=== PATIENT | female | born 1940 | race American Indian/Alaskan Native ===

== ENCOUNTER 2017-01-24 15:42 | Outpatient (CLI) | payer MEDICARE, OTHER ==
--- NOTE | 2017-01-24 16:26 | XRay Report ---
Chest 2 views: Compared to 02/13/15. Findings: Borderline cardiomegaly. Trachea is midline. Evidence of mild COPD. No acute consolidation. Scarring lower lobes. No pleural effusion. Impression: No acute lung changes.
== END 2017-01-24 15:43 | disposition home or self-care (01) ==
LOC: XRAY 15:42
PROVIDERS: ATTEND Internal Medicine
DX: J44.9 Chronic obstructive pulmonary disease, unspecified (principal)
CPT/HCPCS: 71020

== ENCOUNTER 2017-12-02 13:13 | Observation (INO) | payer MEDICARE, OTHER ==
[2017-12-02 14:03] LABS: Basophils % (Auto) 0.2 % (0.0-1.8); Eosinophils # (Auto) 0.7 K/mm3 (0.0-0.4); Eosinophils % (Auto) 8.3 % (0.0-4.3); Hematocrit 34.6 % (30.3-42.9); Hemoglobin 11.7 gm/dl (10.1-14.3); Lymphocytes # (Auto) 2.7 K/mm3 (1.2-5.4); Lymphocytes % (Auto) 32.4 % (13.4-35.0); Mean Corpuscular HGB Conc 34 % (30-34); Mean Corpuscular Hemoglobin 34 pg (28-32); Mean Corpuscular Volume 102 fl (79-97); Monocytes # (Auto) 0.7 K/mm3 (0.0-0.8); Monocytes % (Auto) 8.6 % (0.0-7.3); Platelet Count 206 K/mm3 (140-440); Red Cell Distribution Width 14.3 % (13.2-15.2)
[2017-12-02 14:31] LABS: Calcium 8.6 mg/dL (8.4-10.2)
--- NOTE | 2017-12-02 14:58 | XRay Report ---
PORTABLE CHEST INDICATION: Shortness of breath. COMPARISON: 01/24/2017 FINDINGS: Portable, frontal chest radiograph again demonstrates normal cardiomediastinal silhouette, aortic knob calcifications and prominent bilateral lung markings/fibrotic changes, greatest inferiorly. No pleural effusions or CHF. Stable demineralized bones with few degenerative changes. CONCLUSION: No acute chest process with stable chronic lung changes, as described. Thank you for the opportunity to participate in this patient's care.
--- NOTE | 2017-12-02 19:54 | Emergency Department Report ---
ED General Adult HPI - General Chief complaint: Dyspnea/Respdistress Stated complaint: LOW BLOOD PRESSURE Time Seen by Provider: 12/02/17 18:34 Source: patient, EMS Mode of arrival: Stretcher Limitations: No Limitations - History of Present Illness Initial comments: Patient was sent here from dialysis this morning at about 10:30 AM when they tried to access her dialysis AV fistula but could not access it. She was also bleeding from the site which has since stopped. Patient did not end up doing dialysis today and also did not attend dialysis on Tuesday because she was having some discomfort in the lower extremities. Patient denies any chest pain or shortness of breath. MD Complaint: av fistula unaccessible -: Gradual Improves with: none Worsens with: none - Related Data Home Medications Medication Instructions Recorded Confirmed Last Taken Insulin Aspart [NovoLOG 100 0 unit SQ AC 10/08/15 02/09/16 02/12/16 UNITS/ML VIAL] ALBUTEROL NEB's [Proventil 0.083% 1 dose IH BID PRN 12/26/15 02/18/16 02/12/16 NEBS] Previous Rx's Medication Instructions Recorded Last Taken Type HYDROcodone/APAP 7.5-325 [[place] 1 each PO Q6HR PRN #40 tablet 12/26/15 02/12/16 Rx 7.5-325 mg TAB] Aspirin [Aspirin BABY CHEW TAB] 81 mg PO QDAY #30 tab.chew 02/19/16 Unknown Rx Colchicine [Colcrys] 0.6 mg PO DAILY PRN #30 tablet 02/19/16 Unknown Rx Gabapentin [Neurontin] 300 mg PO BID #30 capsule 02/19/16 Unknown Rx HYDROcodone/APAP 7.5-325 [[place] 1 each PO Q6HR PRN #60 tablet 02/19/16 Unknown Rx 7.5-325 mg TAB] Allergies Allergy/AdvReac Type Severity Reaction Status Date / Time No Known Allergies Allergy Verified 12/22/15 09:25 ED Review of Systems ROS: Stated complaint: LOW BLOOD PRESSURE Other details as noted in HPI Comment: All other systems reviewed and negative ED Past Medical Hx - Past Medical History Previous Medical History?: Yes Hx Hypertension: Yes Hx CVA: Yes (TIAs) Hx Diabetes: Yes (IDDM 3 YEARS) Hx GERD: Yes Hx Renal Disease: Yes Hx Arthritis: Yes Hx Kidney Stones: Yes Hx Psychiatric Treatment: Yes (ANXIETY) Hx COPD: Yes (OXYGEN HS ONLY) Hx Dementia: Yes Hx HIV: No - Surgical History Past Surgical History?: Yes Hx Appendectomy: Yes Additional Surgical History: RIGHT KNEE SURGERY. HYSTERECTOMY. right permacath (Dr. Ornelas) - Social History Smoking Status: Never Smoker Substance Use Type: None - Medications Home Medications: Home Medications Medication Instructions Recorded Confirmed Last Taken Type Insulin Aspart [NovoLOG 100 0 unit SQ AC 10/08/15 02/09/16 02/12/16 History UNITS/ML VIAL] ALBUTEROL NEB's [Proventil 0.083% 1 dose IH BID PRN 12/26/15 02/18/16 02/12/16 History NEBS] HYDROcodone/APAP 7.5-325 [[place] 1 each PO Q6HR PRN #40 tablet 12/26/15 02/18/16 02/12/16 Rx 7.5-325 mg TAB] Aspirin [Aspirin BABY CHEW TAB] 81 mg PO QDAY #30 tab.chew 02/19/16 Unknown Rx Colchicine [Colcrys] 0.6 mg PO DAILY PRN #30 tablet 02/19/16 Unknown Rx Gabapentin [Neurontin] 300 mg PO BID #30 capsule 02/19/16 Unknown Rx HYDROcodone/APAP 7.5-325 [[place] 1 each PO Q6HR PRN #60 tablet 02/19/16 Unknown Rx 7.5-325 mg TAB] ED Physical Exam - General Limitations: No Limitations General appearance: alert, in no apparent distress - Head Head exam: Present: atraumatic, normocephalic - Eye Eye exam: Present: normal appearance. Absent: PERRL - ENT ENT exam: Present: mucous membranes moist - Neck Neck exam: Present: normal inspection - Respiratory Respiratory exam: Present: normal lung sounds bilaterally. Absent: respiratory distress - Cardiovascular Cardiovascular Exam: Present: regular rate, normal rhythm. Absent: systolic murmur, diastolic murmur, rubs, gallop - GI/Abdominal GI/Abdominal exam: Present: soft, normal bowel sounds. Absent: tenderness - Rectal Rectal exam: Present: deferred - Extremities Exam Extremities exam: Present: normal inspection, full ROM - Back Exam Back exam: Present: normal inspection, full ROM - Neurological Exam Neurological exam: Present: alert, oriented X3 - Psychiatric Psychiatric exam: Present: normal affect, normal mood ED Course Vital Signs 03/30/18 03/30/18 13:28 19:16 Temperature 97.7 F Pulse Rate 58 L Respiratory 16 Rate Blood Pressure 96/44 92/43 O2 Sat by Pulse 96 Oximetry - Reevaluation(s) Reevaluation #1: 12/02/17 21:[address] Ismael Mendoza on the patient and he said that if the patient is admitted he will repair the fistula so that the patient can have dialysis tomorrow. ED Medical Decision Making - Lab Data Result diagrams: 12/02/17 13:52 12/02/17 13:52 - Medical Decision Making I spoke to Dr. Lang - the hospitalist and she has accepted the patient for admission Critical care attestation.: If time is entered above; I have spent that time in minutes in the direct care of this critically ill patient, excluding procedure time. ED Disposition Clinical Impression: AV fistula occlusion, ESRD (end stage renal disease) on dialysis Disposition: OP ADMIT IP TO THIS HOSP Is pt being admited?: Yes Does the pt Need Aspirin: No Condition: Stable Referrals: PRIMARY CARE, [Primary Care Provider] - 3-5 Days Time of Disposition: 21:29 Print Language: PALESTINIAN
--- NOTE | 2017-12-02 23:40 | History and Physical Report ---
History of Present Illness Date of examination: 12/02/17 Date of admission: 12/02/17 21:24 Chief complaint: 'HD access nonfuctional History of present illness: Ms Loco is a 77 y/o female with HTN/DM/ESRD, who presented to the hospital with c/o not being able to get HD for 2 days due to malfunctioning AV fistula. Pt denies any symptoms and was upset that the EMS brought her to the hospital and would have preferred to have her bring her to the hospital. Denies SOB. ED course On presentation to the ED, the ED physician spoke to the Vascular surgeon, who will see pt today for eval K within normal limits. Past History Past Medical History: anemia, diabetes, dialysis, ESRD, hypertension Past Surgical History: Other (HD catheter) Social history: , lives with family, smoking, full code Family history: diabetes, hypertension Medications and Allergies Allergies Allergy/AdvReac Type Severity Reaction Status Date / Time No Known Allergies Allergy Verified 12/22/15 09:25 Home Medications Medication Instructions Recorded Confirmed Last Taken Type Insulin Aspart [NovoLOG 100 0 unit SQ AC 10/08/15 02/09/16 02/12/16 History UNITS/ML VIAL] ALBUTEROL NEB's [Proventil 0.083% 1 dose IH BID PRN 12/26/15 02/18/16 02/12/16 History NEBS] HYDROcodone/APAP 7.5-325 [[place] 1 each PO Q6HR PRN #40 tablet 12/26/15 02/18/16 02/12/16 Rx 7.5-325 mg TAB] Aspirin [Aspirin BABY CHEW TAB] 81 mg PO QDAY #30 tab.chew 02/19/16 Unknown Rx Colchicine [Colcrys] 0.6 mg PO DAILY PRN #30 tablet 02/19/16 Unknown Rx Gabapentin [Neurontin] 300 mg PO BID #30 capsule 02/19/16 Unknown Rx HYDROcodone/APAP 7.5-325 [[place] 1 each PO Q6HR PRN #60 tablet 02/19/16 Unknown Rx 7.5-325 mg TAB] Review of Systems Constitutional: other (no weight changes, no fever), no weight loss, no weight gain, no fever, no fatigue, no weakness Eyes: bilateral: other (no visual loss or changes) Ears, nose, mouth and throat: no ear pain, no ear discharge, no bleeding gums, no dental pain, no mouth pain, no dysphagia Breasts: no change in shape, no swelling, no skin changes, no Cardiovascular: no chest pain, no orthopnea, no palpitations, no shortness of breath, no dyspnea on exertion Respiratory: no cough with sputum, no excessive sputum, no congestion, no wheezing, no pleurisy Gastrointestinal: no abdominal pain, no nausea, no vomiting, no hematochezia, no loss of appetite Genitourinary Female: no flank pain, no stress incontinence, no difficulty voiding Menstruation: postmenopausal Rectal: no incontinence, no itching, no hemorrhoids Musculoskeletal: no neck pain, no shooting arm pain, no arm numbness/tingling, no morning stiffness, no muscle weakness, no muscle cramps Integumentary: no rash, no pruritis, no bullae, no lesions, no darkening of skin Neurological: no parathesias, no tingling, no seizures, no syncope Psychiatric: no hypersomnia, no change in appetite, no hallucinations, no paranoia, no depression Endocrine: no cold intolerance, no heat intolerance, no excessive sweating, no weight change Hematologic/Lymphatic: no easy bruising, no easy bleeding, no lymphadenopathy, no lymphedema Allergic/Immunologic: seasonal allergies, no urticaria, no anaphylaxis, no angioedema Exam - Constitutional Vitals: Temp Pulse Resp BP Pulse Ox 98.2 F 58 L 16 115/57 96 12/02/17 21:57 12/02/17 13:28 12/02/17 13:28 12/02/17 21:45 12/02/17 13:28 General appearance: Present: no acute distress, well-nourished - EENT Eyes: Present: PERRL, EOM intact ENT: hearing intact, clear oral mucosa - Neck Neck: Present: supple, normal ROM - Respiratory Respiratory effort: normal Respiratory: bilateral: CTA, rales (minimal rales), negative: rhonchi - Cardiovascular Rhythm: regular Heart Sounds: Present: S1 & S2 - Extremities Extremities: no ischemia, No edema, normal temperature, normal color Peripheral Pulses: within normal limits - Abdominal General gastrointestinal: Present: soft, non-tender, normal bowel sounds - Rectal Rectal Exam: deferred - Integumentary Integumentary: Present: clear, warm, dry - Musculoskeletal Musculoskeletal: strength equal bilaterally - Psychiatric Psychiatric: appropriate mood/affect, intact judgment & insight, memory intact, cooperative - Neurologic Neurologic: CNII-XII intact, moves all extremities - Allied Health Allied health notes reviewed: nursing Results - Labs CBC & Chem 7: 12/03/17 04:38 12/03/17 04:38 Labs: Laboratory Last Values WBC 8.2 K/mm3 (4.5-11.0) 12/02/17 13:52 RBC 3.40 M/mm3 (3.65-5.03) L 12/02/17 13:52 Hgb 11.7 gm/dl (10.1-14.3) 12/02/17 13:52 Hct 34.6 % (30.3-42.9) 12/02/17 13:52 MCV 102 fl (79-97) H 12/02/17 13:52 MCH 34 pg (28-32) H 12/02/17 13:52 MCHC 34 % (30-34) 12/02/17 13:52 RDW 14.3 % (13.2-15.2) 12/02/17 13:52 Plt Count 206 K/mm3 (140-440) 12/02/17 13:52 Lymph % (Auto) 32.4 % (13.4-35.0) 12/02/17 13:52 [place] % (Auto) 8.6 % (0.0-7.3) H 12/02/17 13:52 Eos % (Auto) 8.3 % (0.0-4.3) H 12/02/17 13:52 Baso % (Auto) 0.2 % (0.0-1.8) 12/02/17 13:52 Lymph # 2.7 K/mm3 (1.2-5.4) 12/02/17 13:52 [place] # 0.7 K/mm3 (0.0-0.8) 12/02/17 13:52 Eos # 0.7 K/mm3 (0.0-0.4) H 12/02/17 13:52 Baso # 0.0 K/mm3 (0.0-0.1) 12/02/17 13:52 Seg Neutrophils % 50.5 % (40.0-70.0) 12/02/17 13:52 Seg Neutrophils # 4.2 K/mm3 (1.8-7.7) 12/02/17 13:52 Sodium 136 mmol/L (137-145) L 12/02/17 13:52 Potassium 4.8 mmol/L (3.6-5.0) 12/02/17 13:52 Chloride 91.9 mmol/L (98-107) L 12/02/17 13:52 Carbon Dioxide 24 mmol/L (22-30) 12/02/17 13:52 Anion Gap 25 mmol/L 12/02/17 13:52 BUN 49 mg/dL (7-17) H 12/02/17 13:52 Creatinine 14.5 mg/dL (0.7-1.2) H 12/02/17 13:52 Estimated GFR 3 ml/min 12/02/17 13:52 BUN/Creatinine Ratio 3 % 12/02/17 13:52 Glucose 113 mg/dL (65-100) H 12/02/17 13:52 Calcium 8.6 mg/dL (8.4-10.2) 12/02/17 13:52 - Imaging and Cardiology EKG: report reviewed Chest x-ray: report reviewed Assessment and Plan Assessment and plan: Assessment Malfunctioning AVF ESRD on HD HTN DM II Tobacco abuse Full code status Plan Vascular Surgery consult for eval of current AVF Renal consult for HD Fall and aspiration precautions at all times am labs continue home meds counseled tobacco cessation further pt mght per hospital course f/u vasc surgery inputs multiple questions were answered to the best of my ability DVT and GI ulcer prophylaxis. More than 30 mins spent of which more than 50% of the time was spent in pt counseling and coordination of care
[2017-12-03] MEDS ORDERED: NORCO 7.5/325 PO PRN (01:26)
[2017-12-03] MEDS ORDERED: COLCRYS PO PRN (01:26)
[2017-12-03] MEDS ORDERED: PROVENTIL IH PRN (01:26)
[2017-12-03 05:29] LABS: Basophils # (Auto) 0.1 K/mm3 (0.0-0.1); Basophils % (Auto) 0.9 % (0.0-1.8); Eosinophils # (Auto) 0.7 K/mm3 (0.0-0.4); Eosinophils % (Auto) 9.6 % (0.0-4.3); Hemoglobin 10.7 gm/dl (10.1-14.3); Lymphocytes % (Auto) 40.5 % (13.4-35.0); Mean Corpuscular HGB Conc 33 % (30-34); Mean Corpuscular Hemoglobin 34 pg (28-32); Mean Corpuscular Volume 103 fl (79-97); Monocytes # (Auto) 0.7 K/mm3 (0.0-0.8); Monocytes % (Auto) 10.2 % (0.0-7.3); Platelet Count 206 K/mm3 (140-440); Red Blood Count 3.11 M/mm3 (3.65-5.03); Red Cell Distribution Width 14.5 % (13.2-15.2)
[2017-12-03 05:55] LABS: Calcium 8.4 mg/dL (8.4-10.2)
[2017-12-03] MEDS ORDERED: NEURONTIN PO SCH (10:00)
--- NOTE | 2017-12-03 10:11 | Consultation ---
History of Present Illness - Reason for Consult Consult date: 12/03/17 end stage renal disease - History of Present Illness Ms. Loco is a 77 y/o AAF with history significant for HTN, Type DM, Obesity and ESRD on hemodialysis (MWF) who presented to the hospital with malfunctioning AV fistula. The staff at the hemodialysis unit were not able to cannulate the AVF and she was sent to the ER for further evaluation. She denies any N, V, D, CP, sob, leg swelling, weakness, dizziness or diaphoresis. She is followed by and she gets HD at [facility]. Past History Past Medical History: anemia, diabetes, dialysis, ESRD, hypertension Past Surgical History: Other (HD catheter) Social history: , lives with family, smoking, full code Family history: diabetes, hypertension Medications and Allergies Allergies Allergy/AdvReac Type Severity Reaction Status Date / Time No Known Allergies Allergy Verified 12/22/15 09:25 Home Medications Medication Instructions Recorded Confirmed Last Taken Type Insulin Aspart [NovoLOG 100 0 unit SQ AC 10/08/15 02/09/16 02/12/16 History UNITS/ML VIAL] ALBUTEROL NEB's [Proventil 0.083% 1 dose IH BID PRN 12/26/15 02/18/16 02/12/16 History NEBS] HYDROcodone/APAP 7.5-325 [[place] 1 each PO Q6HR PRN #40 tablet 12/26/15 02/18/16 02/12/16 Rx 7.5-325 mg TAB] Aspirin [Aspirin BABY CHEW TAB] 81 mg PO QDAY #30 tab.chew 02/19/16 Unknown Rx Colchicine [Colcrys] 0.6 mg PO DAILY PRN #30 tablet 02/19/16 Unknown Rx Gabapentin [Neurontin] 300 mg PO BID #30 capsule 02/19/16 Unknown Rx HYDROcodone/APAP 7.5-325 [[place] 1 each PO Q6HR PRN #60 tablet 02/19/16 Unknown Rx 7.5-325 mg TAB] Active Meds: Active Medications Acetaminophen/Hydrocodone Bitart ([place] 7.5/325) 1 each PO Q6HR PRN PRN Reason: Pain Albuterol (Proventil) 2.5 mg IH BID PRN PRN Reason: COPD Aspirin (Baby Aspirin) 81 mg PO QDAY ALEXANDER Colchicine (Colcrys) 0.6 mg PO DAILY PRN PRN Reason: GOUT Gabapentin (Neurontin) 300 mg PO BID [facility] Review of Systems Constitutional: no weight loss, no weight gain, no fever, no chills, no anorexia , no weakness, no poor appetite Ears, nose, mouth and throat: no epistaxis Breasts: deferred Cardiovascular: high blood pressure, no chest pain, no orthopnea, no edema, no syncope, no lightheadedness, no shortness of breath, no leg edema Respiratory: no cough, no hemoptysis, no shortness of breath Gastrointestinal: no abdominal pain, no nausea, no vomiting, no diarrhea, no hematemesis, no melena Genitourinary Female: no dysuria, no hematuria Rectal: no bleeding Integumentary: no rash Neurological: no paralysis, no weakness, no change in speech, no change in mentation, no confusion Exam - Vital Signs Vital signs: Vital Signs Temp Pulse Resp BP Pulse Ox 97.7 F 58 L 16 96/44 96 12/02/17 13:28 12/02/17 13:28 12/02/17 13:28 12/02/17 13:28 12/02/17 13:28 - General Appearance General appearance: well-developed, well-nourished, appears stated age, other ( no distress) EENT: ATNC, PERRL, hearing intact, vision intact Neck: Present: neck supple, trachea midline Respiratory: Clear to Ascultation Heart: regular, S1S2, no murmurs Gastrointestinal: Present: normoactive bowel sounds, obese. Absent: tenderness , distended Integumentary: no rash, warm and dry, chronic venous stasis Neurologic: no focal deficit, no asterixis, alert and oriented x3 Musculoskeletal: Present: other (no edema, lefta rm AVF with bruit noted) Psychiatric: cooperative Results - Lab Results 12/03/17 04:38 12/03/17 04:38 Most recent lab results Calcium 8.4 mg/dL (8.4-10.2) 12/03/17 04:38 Assessment and Plan 1. Malfunctioning left arm AVF: Vascular consulted and scheduled to get angioplasty today. 2. ESRD: HD today after angioplasty. 3. Hypertension: BP well controlled. 4. Anemia: Monitor. Will follow.
[2017-12-03] MEDS ORDERED: NACL 0.9% 100 ML IV PRN (10:16)
--- NOTE | 2017-12-03 10:30 | Consultation ---
History of Present Illness - Reason for Consult Consult date: 12/03/17 Complications of Dialysis Access Requesting physician: EDDIE ROSSI - History of Present Illness The patient is a 77-year-old female with a history of end-stage renal disease who was sent from her dialysis center with a complaint of inability to access her left arm AV fistula. The the patient reported to have missed dialysis on Tuesday and then presented on Tuesday for dialysis but was unable to be accessed. Apparently she had hypotension with a systolic blood pressure in 80s and when her fistula was accessed they were "pulling clots". They attempted to send the patient to our outpatient center for intervention however given the report of hypotension we felt that it was better to send the patient to the emergency department for evaluation. We are now being consulted for evaluation of the fistula and further recommendations. Past History Past Medical History: anemia, diabetes, dialysis, ESRD, hypertension Past Surgical History: Other (HD catheter, left arm brachiobasilic arteriovenous fistula) Social history: , lives with family, smoking, full code Family history: diabetes, hypertension Medications and Allergies Allergies Allergy/AdvReac Type Severity Reaction Status Date / Time No Known Allergies Allergy Verified 12/22/15 09:25 Home Medications Medication Instructions Recorded Confirmed Last Taken Type Insulin Aspart [NovoLOG 100 0 unit SQ AC 10/08/15 02/09/16 02/12/16 History UNITS/ML VIAL] ALBUTEROL NEB's [Proventil 0.083% 1 dose IH BID PRN 12/26/15 02/18/16 02/12/16 History NEBS] HYDROcodone/APAP 7.5-325 [[place] 1 each PO Q6HR PRN #40 tablet 12/26/15 02/18/16 02/12/16 Rx 7.5-325 mg TAB] Aspirin [Aspirin BABY CHEW TAB] 81 mg PO QDAY #30 tab.chew 02/19/16 Unknown Rx Colchicine [Colcrys] 0.6 mg PO DAILY PRN #30 tablet 02/19/16 Unknown Rx Gabapentin [Neurontin] 300 mg PO BID #30 capsule 02/19/16 Unknown Rx HYDROcodone/APAP 7.5-325 [[place] 1 each PO Q6HR PRN #60 tablet 02/19/16 Unknown Rx 7.5-325 mg TAB] Active Meds: Active Medications Acetaminophen/Hydrocodone Bitart ([place] 7.5/325) 1 each PO Q6HR PRN PRN Reason: Pain Albuterol (Proventil) 2.5 mg IH BID PRN PRN Reason: COPD Aspirin (Baby Aspirin) 81 mg PO QDAY [place] Colchicine (Colcrys) 0.6 mg PO DAILY PRN PRN Reason: GOUT Gabapentin (Neurontin) 300 mg PO DAILY [place]LEX[place]ER Sodium Chloride (Nacl 0.9%) 100 mls @ 999 mls/hr IV KUMAR PRN PRN Reason: Hypotension Review of Systems All systems: negative Exam - Constitutional Vitals: Temp Pulse Resp BP Pulse Ox 98.0 F 62 20 110/58 93 12/03/17 07:32 12/03/17 07:32 12/03/17 07:32 12/03/17 07:32 12/03/17 07:32 General appearance: Present: no acute distress - Cardiovascular Rhythm: regular - Extremities Extremities: no ischemia, abnormal (left arm AV fistula with palpable thrill) - Abdominal General gastrointestinal: Present: soft, non-tender Results - Labs CBC & Chem 7: 12/03/17 04:38 12/03/17 04:38 Labs: Abnormal lab results 12/02/17 12/02/17 12/02/17 Range/Units 13:52 13:52 22:51 RBC 3.40 L (3.65-5.03) M/mm3 MCV 102 H (79-97) fl MCH 34 H (28-32) pg Lymph % (Auto) (13.4-35.0) % [place] % (Auto) 8.6 H (0.0-7.3) % Eos % (Auto) 8.3 H (0.0-4.3) % Eos # 0.7 H (0.0-0.4) K/mm3 Seg Neutrophils % (40.0-70.0) % Sodium 136 L (137-145) mmol/L Chloride 91.9 L (98-107) mmol/L BUN 49 H (7-17) mg/dL Creatinine 14.5 H (0.7-1.2) mg/dL Glucose 113 H (65-100) mg/dL POC Glucose 163 H (70-105) 12/03/17 12/03/17 Range/Units 04:38 04:38 RBC 3.11 L (3.65-5.03) M/mm3 MCV 103 H (79-97) fl MCH 34 H (28-32) pg Lymph % (Auto) 40.5 H (13.4-35.0) % [place] % (Auto) 10.2 H (0.0-7.3) % Eos % (Auto) 9.6 H (0.0-4.3) % Eos # 0.7 H (0.0-0.4) K/mm3 Seg Neutrophils % 38.8 L (40.0-70.0) % Sodium (137-145) mmol/L Chloride 90.3 L (98-107) mmol/L BUN 64 H (7-17) mg/dL Creatinine 15.1 H (0.7-1.2) mg/dL Glucose 124 H (65-100) mg/dL POC Glucose (70-105) Assessment and Plan The patient is a 77-year-old female with a history of end-stage renal disease and reports of inability to access her left arm fistula. On physical exam the patient has a left arm AV fistula with a palpable thrill. At this time I recommend going to dialysis and access and it fistula without intervention prior to attempts at access. If there is difficulty with accessing the fistula at dialysis would recommend intervention as an inpatient during this admission.
[2017-12-03] MEDS: BABY ASPIRIN PO SCH (11:02)
[2017-12-03] MEDS ORDERED: HEPARIN/NS 5000 UNIT/500ML(CATH LAB) 1,000 ML IR ONE (14:42)
[2017-12-03] MEDS ORDERED: ANCEF/STERILE WATER 2 GM/20 ML 2 GM/20 ML SYRINGE IV ONE (14:49)
[2017-12-03] MEDS: VERSED ONE ×3 (14:54→15:38)
[2017-12-03] MEDS: SUBLIMAZE ONE ×3 (14:54→15:38)
[2017-12-03] MEDS: XYLOCAINE 2% INFILTRATI ONE ×3 (14:56→15:49)
[2017-12-03] MEDS: HEPARIN 10,000 UNITS/10 ML ONE ×3 (14:57→15:40)
[2017-12-03] MEDS ORDERED: NITROGLYCERIN SYRINGE 3 ML ONE (15:35)
[2017-12-03] MEDS ORDERED: CALAN ONE (15:35)
[2017-12-03] MEDS ORDERED: HEPARIN/NS 5000 UNIT/500ML(CATH LAB) 500 ML IR ONE (15:39)
--- NOTE | 2017-12-03 17:17 | Operative Report ---
Operative Report Operative Report: Date of Procedure: 12/03/2017 Pre-operative Diagnosis: Complications for Dialysis Access Post-operative Diagnosis: Same Procedure(s): 1. Access Left AV Fistula with 6 Albanian Venous 2. Access Left AV Fistula Was 6 Albanian Sheath Arterial 3. Fistulogram Central Venogram 4. Angioplasty Left AV Fistula with 8 x 40 Balloon 5. Percutaneous Mechanical Thrombectomy of Left AV Fistula with Trertolla Device 6. Ultrasound-Guided Access Left Radial Artery With 5 Albanian Sheath 7. Angioplasty of Arterial Outflow of Left AV Fistula with 5 x 60 Balloon 8. Radiologic Supervision with Interpretation Surgeon: Ismael Mendoza M.D. Supervisor Special Education: None Anesthesia: Local and IV sedation EBL: Minimal Counts: Correct Complications: None Condition: Stable Findings: 80% stenosis of the mid body of the fistula with thrombus within the mid body of the fistula. Approximately 75% stenosis of the arterial inflow the fistula. No residual stenosis with thrombus within the mid body of the fistula. Less than 20% residual stenosis of the arterial inflow vessel. 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 Specimen: None Indication: The patient is a 77-year-old female with a history of end-stage renal disease who was admitted from dialysis with complaints of inability to perform dialysis secondary to pulling clots. She was sent to the dialysis unit in the hospital however they had same complaint she was set up for a fistulogram with possible intervention. She was given the risks, benefits, and alternative procedures and consented to the procedure. Description of Procedure: The patient was brought to the laundry laborer and laid in supine position. Her arm was then prepped and draped in normal sterile fashion. Because she did not have a peripheral IV after anesthetizing the skin small stab incision was made in the micropuncture technique was used to access the fistula towards the venous outflow and a 6 Albanian sheath was placed by Seldinger technique. IV sedation was then administered and then a fistulagram was performed with the previously described findings. Angioplasty was performed in the mid body of fistula using 8 x 40 balloon. After performing the angioplasty there was no residual stenosis however it did reveal that there was significant thrombus in the area of the previous stenosis. I used the Trertolla device to morcellate the thrombus and aspirate the thrombus. I then performed a follow-up fistulogram demonstrated no residual thrombus or stenosis. I performed a retrograde fistulogram demonstrated the area of stenosis within the arterial inflow. I anesthetized the skin and made a small stab incision in these micropuncture technique to access the fistula towards arterial inflow. I placed a 6 Albanian sheath by Seldinger technique and then advanced a J-wire towards the arterial inflow. I made multiple attempts to identify the arterial anastomosis and advance a 0.035 Glidewire and vertebral catheter into the rectal anastomosis without success. There were multiple venous collaterals connected to the distal vein making this very difficult to identify the anastomosis. I decided to access the radial artery to cannulate the anastomosis and balloon the entire inflow of the fistula. I used ultrasound to identify the radial artery and confirm patency. I anesthetized the skin overlying soft tissue and then made a small stab incision with 11 blade. These micropuncture technique and then advanced a 5 Albanian sheath by Seldinger technique. I used a 0.035 Glidewire and vertebral catheter to cannulate the anastomosis and then advanced a 5 x 60 balloon and performed angioplasty of the anastomosis of the fistula as well as the areas of stenosis. The final fistulogram demonstrated less than 20% residual stenosis of the inflow as well as brisk flow throughout the fistula. All wires and catheters were removed and a 6 Albanian sheaths were removed and 4-0 chromic were used in pursestring fashion to close the entry sites. The 5 Albanian sheath was removed from the radial artery and a pressure dressing was used to achieve hemostasis. The patient tolerated the procedure well. All sponge, needle, and estimate counts were correct. The patient was taken to the recovery area in stable condition.
--- NOTE | 2017-12-03 19:32 | Progress Note ---
Assessment and Plan Assessment and plan: 77-year-old -Luxembourger female with past medical history significant for ESRD on dialysis was presented for malfunctioning fistula. Patient denied shortness of breath, chest pain, nausea, vomiting. Potassium within normal limits. Vascular surgery was consulted and did fixation of the clogged fistula, patient tolerated the procedure well and getting dialysis through the fistula. History Interval history: Patient was seen and evaluated when she was on hemodialysis, patient denies chest pain, shortness of breath, complains mild pain on the right lower foot. Patient was alert and oriented. Hospitalist Physical - Physical exam Narrative exam: Not in cardiopulmonary distress. The patient is obese. Vital signs as documented. Head exam is unremarkable. No scleral icterus . Neck is without jugular venous distension, thyromegaly, or carotid bruits. Lungs are clear to auscultation. Cardiac exam reveals regular rate and Rhythm. First and second heart sounds normal. No murmurs, rubs or gallops. Abdominal exam reveals normal bowel sounds, no masses, no organomegaly and no aortic enlargement. Extremities are nonedematous and both femoral and pedal pulses are normal. MOTEL FRONT DESK ATTENDANT: Alert and oriented 3. No focal weakness. - Constitutional Vitals: Temp Pulse Resp BP Pulse Ox 98.0 F 79 13 110/58 100 12/03/17 07:32 12/03/17 11:05 12/03/17 11:05 12/03/17 07:32 12/03/17 11:05 General appearance: Present: no acute distress Results - Labs CBC & Chem 7: 12/03/17 04:38 12/03/17 04:38 Labs: Laboratory Last Values WBC 7.4 K/mm3 (4.5-11.0) 12/03/17 04:38 RBC 3.11 M/mm3 (3.65-5.03) L 12/03/17 04:38 Hgb 10.7 gm/dl (10.1-14.3) 12/03/17 04:38 Hct 32.0 % (30.3-42.9) 12/03/17 04:38 MCV 103 fl (79-97) H 12/03/17 04:38 MCH 34 pg (28-32) H 12/03/17 04:38 MCHC 33 % (30-34) 12/03/17 04:38 RDW 14.5 % (13.2-15.2) 12/03/17 04:38 Plt Count 206 K/mm3 (140-440) 12/03/17 04:38 Lymph % (Auto) 40.5 % (13.4-35.0) H 12/03/17 04:38 Edmunds % (Auto) 10.2 % (0.0-7.3) H 12/03/17 04:38 Eos % (Auto) 9.6 % (0.0-4.3) H 12/03/17 04:38 Baso % (Auto) 0.9 % (0.0-1.8) 12/03/17 04:38 Lymph # 3.0 K/mm3 (1.2-5.4) 12/03/17 04:38 Edmunds # 0.7 K/mm3 (0.0-0.8) 12/03/17 04:38 Eos # 0.7 K/mm3 (0.0-0.4) H 12/03/17 04:38 Baso # 0.1 K/mm3 (0.0-0.1) 12/03/17 04:38 Seg Neutrophils % 38.8 % (40.0-70.0) L 12/03/17 04:38 Seg Neutrophils # 2.9 K/mm3 (1.8-7.7) 12/03/17 04:38 Sodium 138 mmol/L (137-145) 12/03/17 04:38 Potassium 4.3 mmol/L (3.6-5.0) 12/03/17 04:38 Chloride 90.3 mmol/L (98-107) L 12/03/17 04:38 Carbon Dioxide 28 mmol/L (22-30) 12/03/17 04:38 Anion Gap 24 mmol/L 12/03/17 04:38 BUN 64 mg/dL (7-17) H 12/03/17 04:38 Creatinine 15.1 mg/dL (0.7-1.2) H 12/03/17 04:38 Estimated GFR 3 ml/min 12/03/17 04:38 BUN/Creatinine Ratio 4 % 12/03/17 04:38 Glucose 124 mg/dL (65-100) H 12/03/17 04:38 POC Glucose 163 (70-105) H 12/02/17 22:51 Calcium 8.4 mg/dL (8.4-10.2) 12/03/17 04:38
--- NOTE | 2017-12-04 08:43 | Progress Note ---
Assessment and Plan 1. Malfunctioning left arm AVF: S/p angioplasty yesterday. 2. ESRD: Patient received about an hour of hemodialysis yesterday, she refused to complete the treatment. 3. Hypertension: BP well controlled. 4. Anemia: Monitor. Will follow. Subjective Date of service: 12/04/17 Interval history: Patient is doing better. Objective - Vital Signs Vital signs: Vital Signs - 12hr 12/03/17 12/04/17 21:22 02:00 Temperature 98.4 F 98.4 F Pulse Rate 86 63 Respiratory 20 20 Rate Blood Pressure 112/46 110/55 [Right] O2 Sat by Pulse 99 92 Oximetry - General Appearance General appearance: well-developed, well-nourished, appears stated age, other ( no distress) EENT: ATNC, PERRL, hearing intact, vision intact Neck: supple Respiratory: Present: Clear to Ascultation Cardiology: regular, S1S2, no murmurs Gastrointestinal: normoactive bowel sounds, no tenderness Integumentary: no rash, warm and dry Neurologic: no asterixis, alert and oriented x3, other (able to move extremities ) Musculoskeletal: other (no edema, left arm AVF) - Lab 12/03/17 04:38 12/03/17 04:38 Most recent lab results Calcium 8.4 mg/dL (8.4-10.2) 12/03/17 04:38
[2017-12-04 08:49] VITALS: BP 96/59
[2017-12-04] MEDS: BABY ASPIRIN PO SCH (09:52)
[2017-12-04] MEDS ORDERED: NEURONTIN PO SCH (10:00)
--- NOTE | 2017-12-04 11:49 | Discharge Summary ---
Providers - Providers Date of Admission: 12/02/17 21:24 Date of discharge: 12/04/17 Attending physician: PHOENIX WARREN MD 12/02/17 23:40 Consult to Physician [CONS] Routine Comment: Consulting Provider: EMANUEL HWANG Physician Instructions: Reason For Exam: malfunctioning aAVF 12/02/17 23:43 Consult to Physician [CONS] Routine Comment: Consulting Provider: TATIANNA MCKEE Physician Instructions: Reason For Exam: ESRD FOR HD Primary care physician: TRUMAN PONCE MD Hospitalization Reason for admission: Occlusion of the AV fistula Condition: Stable Disposition: DC-01 TO HOME OR SELFCARE Time spent for discharge: 31 minutes - Discharge Diagnoses (1) AV fistula occlusion Status: Acute (2) ESRD (end stage renal disease) on dialysis Status: Chronic Core Measure Documentation - Palliative Care Palliative Care/ Comfort Measures: Not Applicable - Core Measures Any of the following diagnoses?: none Exam - Physical Exam Narrative exam: Not in cardiopulmonary distress. The patient is obese. Vital signs as documented. Head exam is unremarkable. No scleral icterus . Neck is without jugular venous distension, thyromegaly, or carotid bruits. Lungs are clear to auscultation. Cardiac exam reveals regular rate and Rhythm. First and second heart sounds normal. No murmurs, rubs or gallops. Abdominal exam reveals normal bowel sounds, no masses, no organomegaly and no aortic enlargement. Extremities are nonedematous and both femoral and pedal pulses are normal. IMPORT SPECIALIST: Alert and oriented 3. No focal weakness. - Constitutional Vitals: Temp Pulse Resp BP Pulse Ox 98 F 61 16 96/59 92 12/04/17 08:48 12/04/17 08:48 12/04/17 08:48 12/04/17 08:48 12/04/17 02:00 Plan Activity: no restrictions Weight Bearing Status: Full Weight Bearing Diet: low cholesterol Follow up with: TRUMAN PONCE MD [Primary Care Provider] - 10 Days
== END 2017-12-04 12:45 | disposition home or self-care (01) ==
LOC: ED 13:13 → 2B-ACE 21:24
PROVIDERS: ADMIT Family Medicine; ATTEND Internal Medicine
DX: T82.898A Other specified complication of vascular prosthetic devices, implants and grafts, initial encounter (principal); I13.11 Hypertensive heart and chronic kidney disease without heart failure, with stage 5 chronic kidney disease, or end stage renal disease; E11.22 Type 2 diabetes mellitus with diabetic chronic kidney disease; N18.6 End stage renal disease; Z99.2 Dependence on renal dialysis; K21.9 Gastro-esophageal reflux disease without esophagitis; M19.90 Unspecified osteoarthritis, unspecified site; F41.9 Anxiety disorder, unspecified; J44.9 Chronic obstructive pulmonary disease, unspecified; D63.1 Anemia in chronic kidney disease; E66.9 Obesity, unspecified; Z68.30 Body mass index [BMI] 30.0-30.9, adult; F17.200 Nicotine dependence, unspecified, uncomplicated; Z86.73 Personal history of transient ischemic attack (TIA), and cerebral infarction without residual deficits
CPT/HCPCS: 36415; 36905; 71045; 80048; 82962; 85025; 93005; 93010; 99285; C1725; C1751; C1757; C1769; C1894; G0378; J0690; J1644; J2250; J3010; Q9967

== ENCOUNTER 2017-12-14 07:36 | Day surgery (SDC) | payer MEDICARE, OTHER ==
[2017-12-14] MEDS ORDERED: SODIUM CHLORIDE FLUSH SYRINGE 10 ML IV NR (09:00)
[2017-12-14] MEDS ORDERED: HEPARIN/NS 5000 UNIT/500ML(CATH LAB) 0 ML IR ONE ×2 (09:25→09:30)
[2017-12-14] MEDS ORDERED: HEPARIN 10,000 UNITS/10 ML ONE ×2 (09:26→11:24)
[2017-12-14] MEDS ORDERED: XYLOCAINE 2% INFILTRATI ONE ×2 (09:26→11:24)
[2017-12-14] MEDS ORDERED: NACL 0.9% 250ML 250 ML ONE ×2 (09:26→11:25)
[2017-12-14] MEDS ORDERED: ANCEF/STERILE WATER 2 GM/20 ML 0 GM/0 ML SYRINGE IV ONE (09:27)
--- NOTE | 2017-12-14 09:58 | Short Stay Summary ---
Short Stay Documentation Date of service: 12/14/17 - History Principal diagnosis: Dialysis access malfunction Past Medical History: dialysis Past Surgical History: Other (LUE fistula creation) Social history: no significant social history - Allergies and Medications Current Medications: Allergies No Known Allergies Allergy (Verified 12/22/15 09:25) Home Medications Medication Instructions Recorded Confirmed Last Taken Type Insulin Aspart [NovoLOG 100 30 unit SQ AC 10/08/15 12/14/17 12/13/17 History UNITS/ML VIAL] ALBUTEROL NEB's [Proventil 0.083% 1 dose IH BID PRN 12/26/15 12/14/17 12/13/17 History NEBS] Aspirin [Aspirin BABY CHEW TAB] 81 mg PO QDAY #30 tab.chew 02/19/16 12/14/1706/22 Rx Gabapentin [Neurontin] 300 mg PO BID #30 capsule 02/19/16 12/14/17 12/13/17 Rx HYDROcodone/APAP 7.5-325 [Logan 1 each PO Q6HR PRN #60 tablet 02/19/16 12/14/17 12/13/17 Rx 7.5-325 mg TAB] Active Medications Sodium Chloride (Sodium Chloride Flush Syringe 10 Ml) 10 ml IV PRN NR Stop: 12/24/17 08:59 - Physical exam General appearance: no acute distress HEENT: Atraumatic Breasts: deferred Heart: Regular rate Gastrointestinal: normal Female Genitourinary: deferred Rectal Exam: deferred Extremities: abnormal (LUE edema) Neurological: Normal speech - Brief post op/procedure progress note Date of procedure: 12/14/17 Pre-op diagnosis: Dialysis malfunction Post-op diagnosis: same Procedure: FGA with central venoplasty Anesthesia: local Surgeon: CAILIN WILDER Estimated blood loss: minimal Pathology: none Condition: stable - Disposition Condition at discharge: Good Disposition: DC-01 TO HOME OR SELFCARE Short Stay Discharge Plan Activity: advance as tolerated Weight Bearing Status: Weight Bear as Tolerated Diet: regular Wound: keep clean and dry, per your surgeon's advice Follow up with: WANDA LAMBERT MD [Primary Care Provider] - 7 Days
[2017-12-14] MEDS ORDERED: SUBLIMAZE ONE (11:22)
[2017-12-14] MEDS ORDERED: VERSED ONE (11:23)
[2017-12-14] MEDS ORDERED: HEPARIN/NS 5000 UNIT/500ML(CATH LAB) 500 ML IR ONE (11:24)
[2017-12-14] MEDS ORDERED: ANCEF/STERILE WATER 2 GM/20 ML 4 GM/40 ML SYRINGE IV ONE (11:25)
[2017-12-14] MEDS: VERSED ONE ×2 (11:49→12:07)
[2017-12-14] MEDS: SUBLIMAZE ONE ×2 (11:49→12:07)
--- NOTE | 2017-12-14 12:40 | Operative Report ---
Operative Report Operative Report: EXAM: LEFT UPPER EXTREMITY FISTULOGRAM, CENTRAL VENOPLASTY CLINICAL INDICATION: MALFUNCTIONING DIALYSIS ACCESS WITH LEFT UPPER EXTREMITY SWELLING DATE: 12/14/2017 PROCEDURE: Following an expiration of the risks, benefits and alternatives; written informed consent was obtained. The patient was brought to the injury Week placed in position on the examination table. Initial evaluation of the arm demonstrated tense swelling of the left arm. A palpable thrill was present. The patient's left upper arm was prepped and draped in the usual sterile fashion. 1% lidocaine was used for anesthesia. Under ultrasound guidance, the fistula was cannulated with the venous outflow using a 7 cm 21-gauge needle. A 0.018 guidewire was advanced centrally. The needle was removed and a microsheath placed. The 0.018 guidewire was exchanged for a 0.035 guidewire and the microsheath exchanged for a 6 Frisian vascular sheath. Contrast injected through the sheath which demonstrates occlusion of the distal subclavian and innominate vein. Previously identified large collateral is no longer visualized. There are small collaterals draining centrally through the neck and chest wall. A 4 Frisian vertebral catheter was advanced over a 0.035 Glidewire to the occlusion. The Glidewire was manipulated through the occlusion however the vertebral catheter would not advance. A 0.035 [place] Blazer catheter was then advanced on the guidewire a distally. Contrast was injected to the Trailblazer which stems straight prompt desiccation of the right atrium. The Glidewire was exchanged for a advantage Glidewire which was advanced into the IVC. Sequential venous dilation of the innominate and subclavian veins was performed using a 4 mm x 200 mm balloon, a 7 mm x 200 mm balloon, a 7 mm x 80 mm drug coated balloon and a 9 mm x 60 mm balloon. The balloons were insufflated to normal atmospheres. The balloons were insufflated for up to 3 minutes. Post antiplastic imaging demonstrated luminal flow through the apache subclavian and innominate veins. A palpable thrill remained present. The patient's arm became noticeably less tense. At this point, the catheters, guidewires and she swerved removed and hemostasis achieved using 4-0 Vicryl suture and Dermabond. A sterile dressing was then applied. The patient tolerated the procedure well. There were no immediate post procedure complications. Conscious sedation was performed under the guidance of radiologic nursing. Continuous cardiopulmonary monitoring was utilized. IMPRESSION: 1) Left upper extremity fistulogram demonstrating occlusion of the innominate and distal subclavian vein as well as occlusion of previously identified large collateral. 2) Venoplasty of the innominate and distal subclavian vein as described with in-line luminal flow and residual 50% stenosis. 3) Given the degree of occlusion of the central veins, the patient will need to be treated again in approximately 1 month with larger balloons.
[2017-12-14 14:38] VITALS: BP 115/67
== END 2017-12-14 13:35 | disposition home or self-care (01) ==
LOC: CATHLABREC 07:36
PROVIDERS: ATTEND Radiology Diagnostic Radiology
DX: T82.590A Other mechanical complication of surgically created arteriovenous fistula, initial encounter (principal); I12.0 Hypertensive chronic kidney disease with stage 5 chronic kidney disease or end stage renal disease; E11.22 Type 2 diabetes mellitus with diabetic chronic kidney disease; N18.6 End stage renal disease; F17.210 Nicotine dependence, cigarettes, uncomplicated; M19.90 Unspecified osteoarthritis, unspecified site; Z79.4 Long term (current) use of insulin; Z79.82 Long term (current) use of aspirin; Y83.2 Surgical operation with anastomosis, bypass or graft as the cause of abnormal reaction of the patient, or of later complication, without mention of misadventure at the time of the procedure
CPT/HCPCS: 36415; 36902; 76937; 84132; 99156; 99157; C1725; C1751; C1769; C1894; C2623; J0690; J1644; J2250; J3010; J7050; Q9967

== ENCOUNTER 2017-12-20 09:53 | Day surgery (SDC) | payer MEDICARE, OTHER ==
--- NOTE | 2017-12-20 10:57 | Anesthesia Day of Surgery ---
Anesthesia Day of Surgery - Day of Surgery Patient is NPO: Yes Beta Blockers: No Cardiac Clearance: No Pulmonary Clearance: No
--- NOTE | 2017-12-20 11:00 | Anesthesia Consultation ---
Anesthesia Consult and Med Hx Date of service: 12/20/17 - Airway Anesthetic Teeth Evaluation: Dentures (Upper and lower dentures ) ROM Head & Neck: Adequate Mental/Hyoid Distance: Adequate Mallampati Class: Class III Intubation Access Assessment: Probably Good - Pulmonary Exam CTA: No (bilateral crackles auscultated) - Cardiac Exam Cardiac Exam: No Murmur - Pre-Operative Health Status ASA Pre-Surgery Classification: ASA4 Proposed Anesthetic Plan: MAC - Pulmonary Hx Smoking: Yes (1/2 PPD FOR 65 YRS) Hx Asthma: No Hx Respiratory Symptoms: No SOB: Yes COPD: Yes (OXYGEN HS ONLY) Home Oxygen Therapy: No Hx Pneumonia: No Hx Sleep Apnea: Yes - Cardiovascular System Hx Hypertension: Yes Hx Coronary Artery Disease: No Hx Heart Attack/AMI: No Hx Angina: No Hx Percutaneous Transluminal Coronary Angioplasty (PTCA): No Hx Cardia Arrhythmia: No Hx Pacemaker: No Hx Internal Defibrillator: No Hx Valvular Heart Disease: No Hx Heart Murmur: No Hx Peripheral Vascular Disease: No - Central Nervous System Hx Neuromuscular Disorder: No Hx Seizures: No CVA: Yes ( 2014 PT DENIES RESIDUAL EFFECTS multiple TIAs) Hx Back Pain: Yes Hx Psychiatric Problems: Yes (depression) - Endocrine Hx Renal Disease: Yes Hx End Stage Renal Disease: Yes (On Dialysis Tue, Thur, Sat) Hx Cirrhosis: No Hx Liver Disease: No Hx Insulin Dependent Diabetes: Yes Hx Non-Insulin Dependent Diabetes: No Hx Thyroid Disease: No Hx Hypothyroidism: No Hx Hyperthyroidism: No - Hematic Hx Anemia: No Hx Sickle Cell Disease: No - Other Systems Hx Alcohol Use: No Hx Substance Use: No Hx Cancer: No Hx Obesity: Yes
[2017-12-20 11:27] LABS: Basophils # (Auto) 0.1 K/mm3 (0.0-0.1); Basophils % (Auto) 1.4 % (0.0-1.8); Eosinophils # (Auto) 0.3 K/mm3 (0.0-0.4); Eosinophils % (Auto) 5.3 % (0.0-4.3); Hematocrit 30.4 % (30.3-42.9); Hemoglobin 10.1 gm/dl (10.1-14.3); Lymphocytes # (Auto) 1.9 K/mm3 (1.2-5.4); Lymphocytes % (Auto) 30.2 % (13.4-35.0); Mean Corpuscular HGB Conc 33 % (30-34); Mean Corpuscular Hemoglobin 34 pg (28-32); Mean Corpuscular Volume 102 fl (79-97); Monocytes # (Auto) 0.5 K/mm3 (0.0-0.8); Monocytes % (Auto) 7.9 % (0.0-7.3); Platelet Count 186 K/mm3 (140-440); Red Blood Count 2.96 M/mm3 (3.65-5.03); Red Cell Distribution Width 16.2 % (13.2-15.2)
[2017-12-20 11:38] LABS: INR 1.01 (0.87-1.13); Partial Thromboplastin Time 36.2 Sec. (24.2-36.6)
[2017-12-20 11:47] LABS: Calcium 8.6 mg/dL (8.4-10.2)
[2017-12-20] MEDS ORDERED: SUBLIMAZE ONE (11:55)
[2017-12-20] MEDS ORDERED: DIPRIVAN 10 MG/ML IV ONE ×2 (11:55→13:49)
[2017-12-20] MEDS ORDERED: NACL 0.9% 1000 ML 1,000 ML ONE (12:22)
[2017-12-20] MEDS ORDERED: ANCEF/STERILE WATER 2 GM/20 ML 2 GM/20 ML SYRINGE IV ONE (12:26)
[2017-12-20] MEDS ORDERED: NACL 0.9% 100 ML ONE (12:36)
[2017-12-20] MEDS ORDERED: HEPARIN/NS 5000 UNIT/500ML(CATH LAB) 1,000 ML IR ONE (12:37)
[2017-12-20] MEDS ORDERED: XYLOCAINE 2% INFILTRATI ONE (12:37)
[2017-12-20] MEDS ORDERED: DILAUDID IV PRN (12:48)
[2017-12-20] MEDS ORDERED: ZOFRAN IV PRN (12:48)
--- NOTE | 2017-12-20 12:48 | Anesthesia Day of Surgery ---
Anesthesia Day of Surgery - Day of Surgery Patient Examined: Yes Patient H&P Reviewed: Yes Patient is NPO: Yes
--- NOTE | 2017-12-20 14:56 | Post Anesthesia Evaluation ---
- Post Anesthesia Evaluation Patient Participated: Yes Airway Patent: Yes Stable Respiratory Function: Yes Nausea/Vomiting: No Temp > 96.8F: Yes Pain Manageable: Yes Adequeate Hydration: Yes Anesthesia Complications: No
[2017-12-20 15:48] VITALS: BP 111/49
--- NOTE | 2017-12-20 16:28 | Post Operative Note ---
Pre-op diagnosis: Central Venous Stenosis Post-op diagnosis: same Findings: 90% Left BCV occlusion Procedure: 1. Ultrasound guided access of a LUE AV fistula 2. LUE AV Fistulagram 3. Selection and venography of the left brachiocephalic vein and SVC 4. Balloon angioplasty of the left BCV with a 6mm balloon 5. Placement of an 11mm x 59mm VBX stent in the left BCV 6. Post stent angioplasty with a 12mm Conquest balloon 7. Angioplasty of an additional segment of the left BCV Anesthesia: MAC Surgeon: BELINDA WILSON Estimated blood loss: none Pathology: none Condition: stable Disposition: same day
--- NOTE | 2017-12-22 12:01 | Operative Report ---
Operative Report Operative Report: Procedure: 1. Ultrasound guided access of a LUE AV fistula 2. LUE AV Fistulagram 3. Selection and venography of the left brachiocephalic vein and SVC 4. Balloon angioplasty of the left BCV with a 6mm balloon 5. Placement of an 11mm x 59mm VBX stent in the left BCV 6. Post stent angioplasty with a 12mm Conquest balloon 7. Angioplasty of an additional segment of the left BCV Physician: Siena Rodgers MD Date: 12/20/2017 Indication: 77-year-old female with a left AV fistula and significant left upper extremity swelling. Technique: The patient was placed in the supine position and prepped and draped in the usual sterile fashion. A timeout was performed. Local anesthetic was administered. Under continuous ultrasound guidance, a 21-gauge needle was advanced into the midportion of the left upper extremity fistula. This was exchanged via a micropuncture technique for a Webb wire. The Webb wire and a 4 Nauruan vertebral catheter over used to access of the IVC. The Webb wire was then exchanged for a V 18 wire. Via Touhy adapter, central venography was performed through the 4 Nauruan vertebral catheter. An 8 Nauruan, 45 cm sheath was placed, with its tip in the peripheral aspect of the brachiocephalic vein. Repeat venography was performed. A 6 mm balloon was used to dilate an area of central brachiocephalic vein stenosis. Thereafter, an 11 mm x 59 mm balloon expandable covered stent was deployed in the brachiocephalic vein and part of the superior vena cava. This was posted with a 12 mm conquest balloon. After repeat venography, angioplasty of an additional segment of the left brachiocephalic vein with the 12 mm balloon was performed. All wires and catheters were removed. The venotomy access was secured with a 3- 0 Vicryl pursestring suture. Discussion. There a 90% narrowing of the central aspect of the brachiocephalic vein extending into the superior vena cava. This was successfully addressed with a VBX 11 mm x 59 mm stent. It would have been appropriate to stent a more peripheral portion of the brachiocephalic vein, however, the patient was becoming agitated and it was advisable to conclude the procedure at that point. Should this residual stenosis have any clinical consequences, a repeat central venography and intervention can be performed.
== END 2017-12-20 15:59 | disposition home or self-care (01) ==
LOC: CATHLABREC 09:53
PROVIDERS: ATTEND Surgery Vascular Surgery
DX: T82.898A Other specified complication of vascular prosthetic devices, implants and grafts, initial encounter (principal); Y83.2 Surgical operation with anastomosis, bypass or graft as the cause of abnormal reaction of the patient, or of later complication, without mention of misadventure at the time of the procedure; I12.0 Hypertensive chronic kidney disease with stage 5 chronic kidney disease or end stage renal disease; E11.22 Type 2 diabetes mellitus with diabetic chronic kidney disease; N18.6 End stage renal disease; J44.9 Chronic obstructive pulmonary disease, unspecified; G47.30 Sleep apnea, unspecified; F17.210 Nicotine dependence, cigarettes, uncomplicated; Z86.73 Personal history of transient ischemic attack (TIA), and cerebral infarction without residual deficits
CPT/HCPCS: 36415; 37238; 37248; 80048; 82962; 85025; 85610; 85730; C1725; C1751; C1769; C1887; C1894; J0690; J1644; J2704; J3010; J7030; Q9967

== ENCOUNTER 2018-01-26 13:26 | Outpatient (CLI) | payer MEDICARE, OTHER ==
--- NOTE | 2018-02-01 12:52 | Mammography Report ---
Bilateral mammogram: Patient with multiple prior surgeries currently on dialysis and complaining of pain in the right breast. Routine views demonstrates nipple retraction on the left which by history is chronic from prior surgeries. Chronic bilateral skin thickening. 2 small focal asymmetries are identified in the superior right breast one of which is questionably seen in the CC projection. The breast pattern otherwise is heterogeneous and symmetrically distributed bilaterally with no additional findings. Prior exam location is unknown. CAD used. Impression: Right breast asymmetries. Recommendation: Additional compression imaging of the right breast and ultrasound if needed. BI-RADS CATEGORY: 0 = Needs additional imaging evaluation ACR BI-RADS MAMMOGRAPHIC CODES: 0 = Needs additional imaging evaluation; 1 = Negative; 2 = Benign; 3 = Probably benign; 4 = Suspicious; 5 = Malignant; 6 = Known biopsy-proven malignancy COMMENT: 1. Dense breast tissue, i.e., adenosis, fibrocystic changes, etc., may obscure an underlying neoplasm. 2. Approximately 10% of cancers are not detected with mammography. 3. A negative mammography report should not delay biopsy if a clinically suspicious mass is present.
--- NOTE | 2018-02-07 16:27 | Ultrasound Report ---
RIGHT BREAST ULTRASOUND: 01/26/18 13:26:00 CLINICAL: Right breast pain. On dialysis. COMPARISON: A same day bilateral mammogram. FINDINGS: Ultrasound of the right breast(including all four quadrants and the retroareolar area) was performed and demonstrated no mass or cyst. Moderate skin thickening of the breast. Ultrasound of the right axilla demonstrated a single lymph node with benign morphology and central fat measuring 3.8 x 1.5 x 2.0 cm. No suspicious lymph node. IMPRESSION: Benign skin thickening and a benign right axillary lymph node. No suspicious finding. BI-RADS 2 - - Benign RECOMMENDATION: Clinical followup and routine mammographic screening.
== END 2018-01-26 13:27 | disposition home or self-care (01) ==
LOC: MAMMO 13:26
PROVIDERS: ATTEND Internal Medicine
DX: N64.4 Mastodynia (principal); N64.59 Other signs and symptoms in breast; I12.0 Hypertensive chronic kidney disease with stage 5 chronic kidney disease or end stage renal disease; E11.22 Type 2 diabetes mellitus with diabetic chronic kidney disease; N18.6 End stage renal disease; Z99.2 Dependence on renal dialysis
CPT/HCPCS: 77066

== ENCOUNTER 2019-03-22 10:19 | Outpatient (CLI) | payer MEDICARE, OTHER ==
--- NOTE | 2019-03-22 12:51 | Mammography Report ---
BILATERAL DIGITAL SCREENING MAMMOGRAM WITH CAD INDICATION: Routine screening mammography. TECHNIQUE: Digital bilateral 2D mammography was obtained in the craniocaudal and mediolateral obliq ue projections. This examination was interpreted with the benefit of Computer-Aided Detection analysi s. COMPARISON: 01/26/2018 FINDINGS: Breast Density: The breasts are heterogeneously dense, which may obscure small masses. There is no evidence of dominant mass, suspicious calcifications or architectural distortion in eith er breast. IMPRESSION:No mammographic evidence of malignancy. BI-RADS Category 1: Negative. No mammographic evidence of malignancy. Recommend routine screening m ammography in one year. A "normal" or negative report should not discourage follow up or biopsy of a clinically significant f inding. A written summary of these findings will be mailed to the patient. The patient will be entered into a mammography reporting system which will generate a reminder letter for the patient's next appointmen t at the appropriate interval. The [employer] recommends yearly mammograms starting at age 40 and continuing as l hellen as a woman is in good health. Breast MRI is recommended for women with an approximate 20-25% or greater lifetime risk of breast cancer, including women with a strong family history of breast or ova gill cancer or who have been treated for Hodgkin's disease. Signer Name: Mike Hogan MD Signed: 03/22/2019 12:46 PM Workstation Name: [id number]
== END 2019-03-22 10:20 | disposition home or self-care (01) ==
LOC: MAMMO 10:19
PROVIDERS: ATTEND Internal Medicine
DX: Z12.31 Encounter for screening mammogram for malignant neoplasm of breast (principal); I10 Essential (primary) hypertension; J44.9 Chronic obstructive pulmonary disease, unspecified; K21.9 Gastro-esophageal reflux disease without esophagitis; E11.9 Type 2 diabetes mellitus without complications; Z90.89 Acquired absence of other organs; Z90.710 Acquired absence of both cervix and uterus
CPT/HCPCS: 77067

== ENCOUNTER 2021-03-23 13:02 | Emergency (ER) | payer MEDICARE, OTHER ==
--- NOTE | 2021-03-23 13:51 | Emergency Department Report ---
ED General Adult HPI - General Chief complaint: Extremity Problem,Nontraumatic Stated complaint: im fine leave me alone im cold and i want to go home PUI?: No Time Seen by Provider: 03/23/21 13:41 Source: patient, EMS (Verbal report received from emergency medical services. EMS documentation not available at time of chart dictation ), RN notes reviewed, old records reviewed Mode of arrival: Stretcher Limitations: No Limitations - History of Present Illness Initial comments: The patient is a 80-year-old female. Her past medical history includes hypertension, diabetes, end-stage renal disease, with left upper extremity AV fistula. Her education manager is Dr. Blackwell She is brought to the hospital by emergency medical services. EMS was activated because the patient had bleeding dialysis fistula that cannot be controlled while on hemodialysis. EMS reports the patient received her full hemodialysis session. EMS control the bleeding with application of direct pressure. The patient herself endorses no acute medical complaints. She denies all complaints. Her only statement is that she is cold, and that she would like to go home. -: Sudden Location: left, upper extremity Severity scale (0 -10): 0 Consistency: now resolved Improves with: other (Application of direct pressure) Worsens with: none - Related Data Home Medications Medication Instructions Recorded Confirmed Last Taken Insulin Aspart (Nf) [NovoLOG 100 30 unit SQ AC 10/08/15 12/14/17 12/13/17 UNITS/ML VIAL] ALBUTEROL NEB's [Proventil 0.083% 1 dose IH BID PRN 12/26/15 12/14/17 12/13/17 NEBS] Previous Rx's Medication Instructions Recorded Last Taken Type Aspirin [Aspirin BABY CHEW TAB] 81 mg PO QDAY #30 tab.chew 02/19/16 12/13/17 Rx Gabapentin 300 mg PO BID #30 capsule 02/19/16 12/13/17 Rx HYDROcodone/APAP 7.5-325 [[place] 1 each PO Q6HR PRN #60 tablet 02/19/16 12/13/17 Rx 7.5-325 mg TAB] Allergies Allergy/AdvReac Type Severity Reaction Status Date / Time No Known Allergies Allergy Verified 12/22/15 09:25 ED Review of Systems ROS: Stated complaint: BLEEDING SHUNT Other details as noted in HPI Comment: All other systems reviewed and negative ED Past Medical Hx - Past Medical History Hx Hypertension: Yes Hx CVA: Yes (TIAs) Hx Heart Attack/AMI: No Hx Diabetes: Yes (IDDM 3 YEARS) Hx GERD: Yes Hx Liver Disease: No Hx Renal Disease: Yes Hx Sickle Cell Disease: No Hx Arthritis: Yes Hx Seizures: No Hx Kidney Stones: Yes Hx Psychiatric Treatment: Yes (ANXIETY) Hx Asthma: No Hx COPD: Yes (OXYGEN HS ONLY) Hx Dementia: Yes Hx HIV: No - Surgical History Hx Pacemaker: No Hx Internal Defibrillator: No Hx Appendectomy: Yes Additional Surgical History: RIGHT KNEE SURGERY. HYSTERECTOMY. right permacath (Dr. Ornelas) - Social History Smoking Status: Current Every Day Smoker - Medications Home Medications: Home Medications Medication Instructions Recorded Confirmed Last Taken Type Insulin Aspart (Nf) [NovoLOG 100 30 unit SQ AC 10/08/15 12/14/17 12/13/17 History UNITS/ML VIAL] ALBUTEROL NEB's [Proventil 0.083% 1 dose IH BID PRN 12/26/15 12/14/17 12/13/17 History NEBS] Aspirin [Aspirin BABY CHEW TAB] 81 mg PO QDAY #30 tab.chew 02/19/16 12/14/17 12/13/17 Rx Gabapentin 300 mg PO BID #30 capsule 02/19/16 12/14/17 12/13/17 Rx HYDROcodone/APAP 7.5-325 [[place] 1 each PO Q6HR PRN #60 tablet 02/19/16 12/14/17 12/13/17 Rx 7.5-325 mg TAB] ED Physical Exam - General Limitations: No Limitations General appearance: alert, in no apparent distress - Head Head exam: Present: atraumatic, normocephalic - Eye Eye exam: Present: normal appearance, EOMI. Absent: nystagmus - ENT ENT exam: Present: normal exam, normal orophraynx, mucous membranes moist, normal external ear exam - Neck Neck exam: Present: normal inspection, full ROM. Absent: tenderness, meningismus - Respiratory Respiratory exam: Present: normal lung sounds bilaterally. Absent: respiratory distress, wheezes, rales, rhonchi, stridor, decreased breath sounds - Cardiovascular Cardiovascular Exam: Present: regular rate, normal rhythm, normal heart sounds. Absent: bradycardia, tachycardia, irregular rhythm, systolic murmur, diastolic murmur, rubs, gallop - GI/Abdominal GI/Abdominal exam: Present: soft. Absent: distended, tenderness, guarding, rebound, rigid, pulsatile mass - Extremities Exam Extremities exam: Present: normal inspection (There is a left upper extremity fistula, with appropriate thrill, without redness, pus, streaking, tenderness or active bleeding), full ROM, pedal edema (1+ edema in the bilateral lower extremities. Chronic venous stasis changes noted in the bilateral lower extremities.), other (2+ pulses noted in the bilateral upper and lower extremities. There is no palpable cord. negative Homans sign. Muscular compartments are soft. The pelvis is stable.). Absent: calf tenderness - Back Exam Back exam: Present: normal inspection. Absent: tenderness, CVA tenderness (R), CVA tenderness (L), paraspinal tenderness, vertebral tenderness - Neurological Exam Neurological exam: Present: alert, oriented X3, other (No facial droop. Tongue midline. Extraocular movements intact bilaterally. Facial sensation intact to light touch in V1, V2, V3 distribution bilaterally. 5 and a 5 strength in 4 extremities. Sensation intact to light touch in 4 extremities.) - Psychiatric Psychiatric exam: Present: normal affect, normal mood - Skin Skin exam: Present: warm, dry, intact, normal color. Absent: rash ED Course Vital Signs 03/23/21 13:12 Temperature 97.0 F L Pulse Rate 80 Respiratory 18 Rate Blood Pressure 124/59 [Right] O2 Sat by Pulse 97 Oximetry ED Medical Decision Making - Lab Data Vital Signs 03/23/21 13:12 Temperature 97.0 F L Pulse Rate 80 Respiratory 18 Rate Blood Pressure 124/59 [Right] O2 Sat by Pulse 97 Oximetry - Medical Decision Making Differential diagnosis, including but not limited to: Thrombocytopenia, dysfunctional platelets, anemia of chronic disease, electrolyte derangement, hyperkalemia, end-stage renal disease Assessment and plan: 80-year-old female, who was afebrile, with reassuring vital signs, clinically sober, with a GCS of 15, who exhibits decision-making capacity, and is free from distracting injuries, who presents to the ER today via EMS, with an EMS articulated complaint of left upper extremity hemodialysis access bleeding. Bleeding is resolved. Patient has no acute medical complaints. Suspect that bleeding is likely secondary to recent cannulation from hemodialysis access needle. Have recommended laboratory studies to evaluate CBC, and basic metabolic panel. Specifically advised patient that we would like to check potassium, to make sure it is not dangerously elevated. Patient specifically advised that high potassium may be fatal. Patient remains awake, alert, oriented, sober and ex hibits decision-making capacity. She is refusing laboratory studies. She does not want to be in the emergency room at this time. She will be discharged AGAINST MEDICAL ADVICE. Risks of leaving, including , disability, paralysis, loss of quality of life are discussed with the patient, with nurse Karly Verduzco present as a witness. The patient is awake, alert, of sound mind, and able to articulate these risks in her own words. She understands that she may return to the emergency room right away if and when she changes her mind. Critical care attestation.: If time is entered above; I have spent that time in minutes in the direct care of this critically ill patient, excluding procedure time. ED Disposition Clinical Impression: End-stage renal disease on hemodialysis, A-V fistula Disposition: LEFT AGAINST MED ADVICE Is pt being admited?: No Does the pt Need Aspirin: No Condition: Undetermined Additional Instructions: As we discussed, you have left the hospital/emergency room AGAINST MEDICAL ADVICE. By leaving, you risked , disability, paralysis, permanent loss of quality of life. The ER is open 24 hours a day, 7 days a week. It never closes. Please return to the emergency room right away if and when you change your mind. If you decide not to return to the emergency room, please follow-up with the listed physician referrals as soon as possible. If bleeding reoccurs, please apply gentle digital pressure with fingertip to fistula. Avoid consumption of Motrin, ibuprofen, Naprosyn, Aleve, heavy and spicy foods. Referrals: TATIANNA MCKEE MD [Staff Physician] - REBA MADRID MD [Staff Physician] - SAW[facility]ER
[2021-03-23 13:52] VITALS: BP 124/59
== END 2021-03-23 15:25 | disposition left against medical advice (07) ==
LOC: ED 13:02
DX: T82.838A Hemorrhage due to vascular prosthetic devices, implants and grafts, initial encounter (principal); E11.22 Type 2 diabetes mellitus with diabetic chronic kidney disease; I12.0 Hypertensive chronic kidney disease with stage 5 chronic kidney disease or end stage renal disease; N18.6 End stage renal disease; K21.9 Gastro-esophageal reflux disease without esophagitis; M19.90 Unspecified osteoarthritis, unspecified site; J44.9 Chronic obstructive pulmonary disease, unspecified; F41.9 Anxiety disorder, unspecified; F03.90 Unspecified dementia, unspecified severity, without behavioral disturbance, psychotic disturbance, mood disturbance, and anxiety; F17.290 Nicotine dependence, other tobacco product, uncomplicated; Z98.890 Other specified postprocedural states; Y82.8 Other medical devices associated with adverse incidents; Y92.89 Other specified places as the place of occurrence of the external cause
CPT/HCPCS: 99283